=== PATIENT | male | born 1985 | race Caucasian/White ===

== ENCOUNTER 2018-09-10 09:30 | Emergency (ER) | payer SELFPAY ==
[2018-09-10] MEDS ORDERED: Bupivacaine PF 0.5% 30 ML VIAL ONE (10:05)
== END 2018-09-10 10:25 | disposition home or self-care (01) ==
LOC: MADERS 09:30
DX: K08.89 Other specified disorders of teeth and supporting structures (principal); Z87.891 Personal history of nicotine dependence
CPT/HCPCS: 64400; S0020